=== PATIENT | female | born 1955 | race Caucasian/White ===

== ENCOUNTER 2019-01-02 08:53 | Emergency (ER) | payer MEDICARE, MEDICAID ==
[~2019-01-02] VITALS: Ht 160 cm; Wt 64.0 kg
[~2019-01-02 08:53] MED LIST: ATOR20TA65 PO; BRIM.2 BOTHEYE; CALC667C4 PO; CARV12.545 PO; CHOL100046 PO; FOLI-43 PO; FOLI1TAB63 PO; LATA2.5D2 EACHEYE; LISI-186 PO; LORA2TAB2 PO; OMEG100016 PO; PILO2O EACHEYE; REN800 PO; [UNRECOGNIZED DRUG - CODE] BOTHEYE; [UNRECOGNIZED DRUG - OTHER] PO
[2019-01-02 11:32] LABS: BASOPHILS % 0.8 % (0.0-2.0); EOSINOPHILS % 2.3 % (0.0-5.0); HEMATOCRIT. 38.9 % (36.0-48.0); LYMPHOCYTES % 29.4 % (20.0-50.0); MEAN CORPUSCULAR HEMOGLOBIN 30.3 pg (28.0-32.0); MEAN CORPUSCULAR VOLUME 90.8 fL (81.0-99.0); MONOCYTES % 9.5 % (2.0-8.0); PLATELET 180 x1000/uL (130-400); RED BLOOD CELL COUNT 4.29 mill/uL (4.2-5.4); RED CELL DISTRIBUTION WIDTH 14.5 % (11.6-14.6)
[2019-01-02 11:36] LABS: CHLORIDE 94 mEq/L (98-107)
[2019-01-02 11:39] LABS: PARTIAL THROMBOPLASTIN TIME 25.5 sec (23.4-31.0); PROTHROMBIN TIME 10.1 sec (9.6-11.0)
[2019-01-02 14:09] VITALS: BP 136/56
== END 2019-01-02 14:14 | disposition home or self-care (01) ==
LOC: ER 08:53 → CANBEDREQ 16:52
DX: T82.590A Other mechanical complication of surgically created arteriovenous fistula, initial encounter (principal); X58.XXXA Exposure to other specified factors, initial encounter; I12.0 Hypertensive chronic kidney disease with stage 5 chronic kidney disease or end stage renal disease; N18.6 End stage renal disease; Z99.2 Dependence on renal dialysis; Z79.899 Other long term (current) drug therapy
CPT/HCPCS: 36415; 71045; 86850; 86900; 93005; 99284